=== PATIENT | female | born 1950 ===

== ENCOUNTER 2017-06-25 18:38 | Emergency (ER) | payer MEDICARE, OTHER ==
[2017-06-25] MEDS ORDERED: ZOFRAN IV ONE (20:39)
[2017-06-25] MEDS ORDERED: NACL 0.9% 1000 ML 1,000 ML IV ONE ×2 (20:39→23:15)
--- NOTE | 2017-06-25 20:44 | Emergency Department Report ---
ED Abdominal Pain HPI - General Chief Complaint: Nausea/Vomiting/Diarrhea Stated Complaint: NAUSEA/VOMITTING Time Seen by Provider: 06/25/17 20:35 Source: patient, EMS Mode of arrival: Stretcher Limitations: Altered Mental Status - History of Present Illness Initial Comments: Patient is 67 years old female with history of advanced dementia [facility] for evaluation of abdominal pain and vomiting that started this morning. Patient is unable to give history due to her advanced dementia but she stated that she is having abdominal pain pointing to her mid abdomen and stated that it's sharp. MD Complaint: abdominal pain -: This morning Location: diffuse Quality: sharp Associated Symptoms: nausea, vomiting - Related Data Previous Rx's Medication Instructions Recorded Last Taken Type QUEtiapine [SEROquel] 50 mg PO QHS #30 tablet 05/05/17 Unknown Rx Allergies Allergy/AdvReac Type Severity Reaction Status Date / Time codeine Allergy Unknown Verified 05/05/17 10:35 ED Review of Systems ROS: Stated complaint: NAUSEA/VOMITTING Other details as noted in HPI Comment: Unobtainable due to pts medical conditions ED Past Medical Hx - Past Medical History Hx Psychiatric Treatment: Yes (Bipolar) Hx Dementia: Yes - Social History Smoking Status: Unknown if ever smoked Substance Use Type: None - Medications Home Medications: Home Medications Medication Instructions Recorded Confirmed Last Taken Type QUEtiapine [SEROquel] 50 mg PO QHS #30 tablet 05/05/17 Unknown Rx ED Physical Exam - General Limitations: Altered Mental Status General appearance: alert, in no apparent distress - Head Head exam: Present: atraumatic, normocephalic - ENT ENT exam: Present: mucous membranes dry - Neck Neck exam: Present: normal inspection, full ROM. Absent: tenderness, meningismus, lymphadenopathy, thyromegaly - Respiratory Respiratory exam: Present: normal lung sounds bilaterally - Cardiovascular Cardiovascular Exam: Present: regular rate, normal rhythm, normal heart sounds - GI/Abdominal GI/Abdominal exam: Present: soft, tenderness (suprapubic), normal bowel sounds. Absent: distended, guarding, rebound, rigid, organomegaly, mass, bruit, pulsatile mass, hernia - Extremities Exam Extremities exam: Present: normal inspection, full ROM, normal capillary refill - Back Exam Back exam: Present: normal inspection, full ROM. Absent: tenderness, CVA tenderness (R), CVA tenderness (L), muscle spasm, paraspinal tenderness - Neurological Exam Neurological exam: Present: alert. Absent: motor sensory deficit - Skin Skin exam: Present: warm, dry, intact ED Course Vital Signs 06/25/17 06/25/17 06/25/17 19:29 19:30 19:39 Temperature 98.1 F Pulse Rate 73 Respiratory 16 16 Rate Blood Pressure 110/64 124/67 O2 Sat by Pulse 96 97 98 Oximetry 06/25/17 06/25/17 06/25/17 19:45 20:00 20:15 Temperature Pulse Rate Respiratory Rate Blood Pressure 124/67 122/68 122/68 O2 Sat by Pulse 98 97 98 Oximetry 06/25/17 06/25/17 06/25/17 20:30 20:45 21:00 Temperature Pulse Rate Respiratory Rate Blood Pressure 104/60 104/60 108/25 O2 Sat by Pulse 97 97 96 Oximetry 06/25/17 06/25/17 06/25/17 21:15 21:30 21:45 Temperature Pulse Rate Respiratory Rate Blood Pressure 122/68 106/59 106/59 O2 Sat by Pulse 97 97 97 Oximetry 06/25/17 06/25/17 06/25/17 22:00 22:15 22:30 Temperature Pulse Rate Respiratory Rate Blood Pressure 92/74 108/25 109/62 O2 Sat by Pulse 100 95 98 Oximetry 06/25/17 06/25/17 06/25/17 22:45 23:07 23:16 Temperature Pulse Rate Respiratory Rate Blood Pressure 106/59 O2 Sat by Pulse 99 97 98 Oximetry 06/25/17 06/25/17 06/26/17 23:30 23:46 00:01 Temperature Pulse Rate Respiratory Rate Blood Pressure 104/77 130/73 106/70 O2 Sat by Pulse 97 98 Oximetry - Reevaluation(s) Reevaluation #1: 06/26/17 00:07 Patient stated that she is feeling better. No nausea or vomiting noticed in the ER. ED Medical Decision Making - Lab Data Result diagrams: 06/25/17 20:49 06/25/17 20:48 Critical care attestation.: If time is entered above; I have spent that time in minutes in the direct care of this critically ill patient, excluding procedure time. ED Disposition Clinical Impression: Abdominal pain, UTI (urinary tract infection) Disposition: DC-01 TO HOME OR SELFCARE Is pt being admited?: No Condition: Stable Instructions: Urinary Tract Infection in Women (ED) Referrals: PRIMARY CARE, [Primary Care Provider] - 3-5 Days
[2017-06-25 21:09] LABS: Hematocrit 39.8 % (30.3-42.9); Hemoglobin 13.3 gm/dl (10.1-14.3); Mean Corpuscular HGB Conc 33 % (30-34); Mean Corpuscular Hemoglobin 30 pg (28-32); Mean Corpuscular Volume 91 fl (79-97); Platelet Count 146 K/mm3 (140-440); Red Blood Count 4.38 M/mm3 (3.65-5.03); Red Cell Distribution Width 13.9 % (13.2-15.2); White Blood Count 9.4 K/mm3 (4.5-11.0)
[2017-06-25 21:32] LABS: Alanine Aminotransferase 10 units/L (7-56); Albumin 4.1 g/dL (3.9-5); Albumin/Globulin Ratio 1.6 %; Alkaline Phosphatase 95 units/L (35-129); Anion Gap 15 mmol/L; BUN/Creatinine Ratio 30; Blood Urea Nitrogen 21 mg/dL (7-17); Calcium 9.2 mg/dL (8.4-10.2); Carbon Dioxide 28 mmol/L (22-30); Chloride 102.5 mmol/L (98-107); Glucose 127 mg/dL (65-100); Lipase 17 units/L (13-60); Potassium 4.7 mmol/L (3.6-5.0); Sodium 141 mmol/L (137-145); Total Protein 6.6 g/dL (6.3-8.2)
[2017-06-25 21:50] LABS: Bilirubin,Direct < 0.2 mg/dL (0-0.2); Bilirubin,Indirect 0.2 mg/dL
[2017-06-25 22:08] LABS: Blastocytes % (Manual) 0 %; Eosinophils % (Manual) 0 % (0.0-4.3); Platelet Estimate Consistent w Auto; RBC Morphology Normal
[2017-06-25 22:09] LABS: Diff Status Complete
[2017-06-25 23:16] LABS: Bacteria,Urine 1+ /HPF (Negative); Bilirubin,Urine NEG (Negative); Blood,Urine NEG (Negative); Ketones,Urine NEG (Negative); Leukocyte Esterase,Urine NEG (Negative); Mucus,Urine FEW /HPF; Nitrite,Urine POS (Negative); Protein,Urine <15 mg/dL mg/dL (Negative); Urobilinogen,Urine < 2.0 mg/dL (<2.0)
[2017-06-26] MEDS ORDERED: ROCEPHIN/NS 1 GM/50 ML 1 GM/50 ML BAG IV ONE (00:03)
[2017-06-26] MEDS ORDERED: cefTRIAXone 1 GM in NACL 0.9% 20 ML IV ONE (00:15)
[2017-06-26 01:16] VITALS: BP 110/89
== END 2017-06-26 01:33 | disposition home or self-care (01) ==
LOC: ED 18:38
DX: R10.84 Generalized abdominal pain (principal); N39.0 Urinary tract infection, site not specified; Z88.6 Allergy status to analgesic agent
CPT/HCPCS: 36415; 80048; 80074; 81001; 83690; 84484; 85007; 85025; 93005; 93010; 96361; 96365; 96375; 99284; J0696; J2405; J7030